=== PATIENT | male | born 1960 | race Caucasian/White ===

== ENCOUNTER → 2017-09-26 | Outpatient (CLI) | payer MEDICARE, BC ==
--- NOTE | 2017-09-26 14:02 | US ---
EXAMINATION TYPE: US kidneys/renal and bladder DATE OF EXAM: 09/26/2017 COMPARISON: CT abdomen and pelvis February 19, 2014 CLINICAL HISTORY: N18.3 Stage 3 Chronic Kidney Disease. Liver transplant 10 years ago and kidneys are affected by meds EXAM MEASUREMENTS: Right Kidney: 8.6 x 4.2 x 5.0 cm Left Kidney: 9.0 x 3.5 x 4.6 cm Right Kidney: smaller in size Left Kidney: smaller in size Bladder: wnl Bilateral Jets seen: yes There is no evidence for hydronephrosis at this point in time. No nephrolithiasis is seen. No maurisio s are identified. The urinary bladder is anechoic. Bilateral ureteral jets are seen. IMPRESSION: Somewhat small sized kidneys bilaterally without hydronephrosis seen bilaterally.
== END | disposition home or self-care (01) ==
LOC: RADUSWWP 13:22
PROVIDERS: ATTEND Internal Medicine Nephrology
DX: N18.3 Chronic kidney disease, stage 3 (moderate) (principal)
CPT/HCPCS: 76770

== ENCOUNTER → 2017-11-29 | Outpatient (CLI) | payer MEDICARE, BC ==
--- NOTE | 2017-11-30 17:17 | MR ---
EXAMINATION TYPE: MR brain wo/w con DATE OF EXAM: 11/29/2017 COMPARISON: 11/29/2014 HISTORY: White matter disease TECHNIQUE: Multiplanar, multisequence images of the brain and brainstem is performed without and with IV contras t, utilizing 10 mL intravenous Gadavist gadolinium contrast is administered intravenously. Demyelina ting disease protocol with additional Sagittal Flair sequence performed. FINDINGS: T2 Lesions Present : Yes Approximate Number of Lesions: Approximately 17 within the right cerebral hemisphere and approximatel y 14 on the left. Locations Identified : Callosal, Pericallosal, Periventricular, Juxtacortical Size of Reference Lesion(s): 1. 0.5 cm x 0.6 cm x 0.7 cm on axial image 22 and sagittal image 27 within the right hemisphere stevie callosal white matter. 2 0.5 cm x 0.9 cm x 0.8 cm on axial image 24 and sagittal image 27 within the right hemisphere stevie callosal white matter. Enhancing Lesion(s) Present: No T1 Hypointense Lesion(s) Present: Yes Change from Prior: Minimal increase in size and number. T2/IR hyperintense linear lesion is seen within the splenium of the corpus callosum that does not dem onstrate enhancement or restricted diffusion. This is unchanged from the prior. 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 Diffusion weighted images demonstrate no eviden ce of a recent infarct or other diffusion abnormality. There is no worrisome extra-axial fluid colle ction. The ventricular system and cisternal spaces are normal in size and appearance. The brain vol ume is age appropriate. Midline structures demonstrate normal morphology. The craniocervical junction appears within normal limits. Post contrast images demonstrate no abnormal enhancement. The dural venous sinuses appear pa tent. The previously seen extensive right maxillary paranasal sinus disease has resolved in the inter im. The visualized sinuses are clear and the globes are intact. Scant fluid is noted within the anter ior right inferior mastoid air cells. IMPRESSION: Minimal increase in size and number of the white matter lesions that could represent demy elinating lesions given involvement of the corpus callosum and pericallosal white matter or sequela o f vasculitis/chronic microangiopathy.
== END | disposition home or self-care (01) ==
LOC: RADMRIMAIN 09:26
PROVIDERS: ATTEND Psychiatry & Neurology Neurology
DX: G93.89 Other specified disorders of brain (principal); Z88.2 Allergy status to sulfonamides; Z88.8 Allergy status to other drugs, medicaments and biological substances
CPT/HCPCS: 82565; 84520; 70553; 36415; A9581

== ENCOUNTER → 2018-06-02 | Outpatient (CLI) | payer MEDICARE, BC ==
--- NOTE | 2018-06-02 20:22 | MR ---
EXAMINATION TYPE: MR brain wo/w con DATE OF EXAM: 06/02/2018 COMPARISON: 11/29/2017 HISTORY: MS. Follow-up examination. TECHNIQUE: Multiplanar, multisequence images of the brain and brainstem is performed without and with IV contras t, utilizing 10 mL intravenous Gadavist gadolinium contrast is administered intravenously. Demyelina ting disease protocol with additional Sagittal Flair sequence performed. FINDINGS: T2 Lesions Present : Yes Approximate Number of Lesions: Approximately 17 within the right cerebral hemisphere and approximatel y 14 on the left. Locations Identified : Pericallosal, Periventricular, Juxtacortical Size of Reference Lesion(s): 1. 0.5 cm x 0.6 cm x 0.7 cm on axial image 20 and sagittal image 37 2 0.5 cm x or 0.9 cm x 0.8 cm on axial image 22 and sagittal image 27 Enhancing Lesion(s) Present: No T1 Hypointense Lesion(s) Present: Yes Change from Prior: Stable There is a new right frontal nonenhancing T2 hyperintense and FLAIR hypointense CSF intensity lesion of the white matter that does not demonstrate restricted diffusion relating to interval development o f a now old lacunar injury. Diffusion weighted images demonstrate no evidence of a recent infarct or other diffusion abnormality. 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 There is no worrisome extra-axial fluid collection. The ventricular system and cisternal spaces are bernardo l in size and appearance. The brain volume is age appropriate. Midline structures demonstrate normal morphology. The craniocervical junction appears within normal limits. Post contrast images demonstrate no abnormal enhancement. The dural venous sinuses appear pa tent. The visualized sinuses are clear and the globes are intact. IMPRESSION: 1. Interval development of a now old, CSF attenuated, right frontal lobe lacunar injury. No acute inf arct. 2. Stable nonenhancing moderate burden white matter disease in keeping with this patient's history of multiple sclerosis and in comparison to the prior of 11/29/2017. No lesions restricting diffusion or e nhancement to suggest active demyelination at this time.
== END | disposition home or self-care (01) ==
LOC: RADMRIMAIN 11:30
PROVIDERS: ATTEND Nurse Practitioner Acute Care
DX: R90.82 White matter disease, unspecified (principal); G35 Multiple sclerosis; Z88.2 Allergy status to sulfonamides; Z88.8 Allergy status to other drugs, medicaments and biological substances
CPT/HCPCS: 70553; A9581